=== PATIENT | male | born 1970 | race Caucasian/White ===

== ENCOUNTER 2022-10-20 06:37 | Emergency (ER) | payer OTHER, SELFPAY ==
--- NOTE | ~2022-10-20 | XR_ITS ---
EXAMINATION: XR chest 1V portable DATE: 10/20/2022 08:45 INDICATION: Hypertension. TECHNIQUE: A single frontal view of the chest was obtained. COMPARISON: None. FINDINGS: There is no pneumonia, pleural effusion, or pneumothorax. The heart size is normal. IMPRESSION: 1. No acute cardiopulmonary disease. Reviewed, dictated and finalized at location A. P[facility]TER
[2022-10-20 07:02] VITALS: BP 181/111; PULSE 98; RESP 16; TEMP 36.7; O2SAT 100
--- NOTE | 2022-10-20 08:18 | ECG_ITS ---
Measurements Intervals [place] Rate: 78 P: 13 AL: 172 QRS: -4 QRSD: 115 T: 62 QT: 374 QTc: 427 Interpretive Statements SINUS RHYTHM WITH SINUS ARRHYTHMIA INCOMPLETE RIGHT BUNDLE BRANCH BLOCK [90+ ms QRS DURATION, TERMINAL R IN V1/V2, 40+ ms S IN I/aVL/V4/V5/V6] NO PREVIOUS ECG AVAILABLE FOR COMPARISON Electronically Signed On 10-20-2022 14:55:13 [employer] ASSIST[employer] by Denia Velazquez M.D.
[2022-10-20 08:37] LABS: Basophils Absolute Auto 0.1 K/mm3 (0.0-0.1); Basophils Percent Auto 0.6 % (0.2-1.2); Eosinophils Absolute Auto 0.1 K/mm3 (0-0.3); Eosinophils Percent Auto 0.8 % (0-4.4); Hemoglobin 17.9 g/dL (14.0-18.0); Immature Granulocyte Absolute 0.11 K/mm3 (0.00-0.031); Immature Granulocyte Percent A 0.8 % (0-0.5); Lymphocytes Absolute Auto 1.47 K/mm3 (0.9-3.2); Lymphocytes Percent Auto 10.5 % (18.3-44.2); Mean Corpuscular HGB Conc 34.4 g/dl (32-36); Mean Corpuscular Hemoglobin 31.2 pg (26-34); Mean Corpuscular Volume 90.6 fl (80-100); Mean Platelet Volume 11.6 fl (7.4-10.4); Monocytes Absolute Auto 0.7 K/mm3 (0.1-0.6); Monocytes Percent Auto 5.2 % (2.6-8.5); Neutrophils Absolute Auto 11.5 K/mm3 (1.3-6.7); Neutrophils Percent Auto 82.1 % (45.5-73.1); Platelet Count Result 151 k/mm3 (150-375); Red Blood Count 5.74 M/mm3 (4.6-6.20); Red Cell Distribution Width 12.7 % (11.5-14.5)
[2022-10-20 08:39] LABS: Alanine Aminotransferase 32 U/L (6-50); Albumin Level 4.4 g/dL (3.5-5.1); Alkaline Phosphatase 99 U/L (38-126); Anion Gap 5 mmol/L (8-16); Aspartate Amino Transferase 29 U/L (17-59); Bilirubin,Total 0.6 mg/dL (0.2-1.3); Blood Urea Nitrogen 9 mg/dL (9-20); Calcium 8.5 mg/dL (8.4-10.2); Carbon Dioxide 31 mmol/L (22-30); Chloride 103 mmol/L (98-107); Estimated CRCL calculation 146 ml/min; Estimated Glomerular Filt Rate > 60; Glucose 112 mg/dL (65-110); Potassium 4.5 mmol/L (3.4-5.0); Sodium 139 mmol/L (137-145)
[2022-10-20 09:08] LABS: Appearance Urine Clear (Clear); Bilirubin Urine Negative (Negative); Blood Urine Negative (Negative); Color Urine Yellow (Yellow); Glucose Urine UA Negative (Negative); Ketones Urine Negative (Negative); Leukocyte Esterase Ur Negative LEU/UL (Negative); Nitrate Urine Negative (Negative); Protein Urine Negative (Negative); Specific Grav Ur <= 1.005 (1.001-1.035); Urobilinogen Urine 0.2 mg/dL (<2.0); pH Urine 6.5 (5.0-9.0)
[2022-10-20 09:10] LABS: RBC Urine 0-2 /hpf (0-2)
[2022-10-20 09:23] VITALS: BP 166/109; PULSE 81; RESP 15
[2022-10-20] MEDS: LOSARTAN POTASSIUM 50 MG TABLET PO (09:23)
[2022-10-20 09:25] LABS: Troponin I < 0.012 ng/mL (0.000-0.034)
--- NOTE | 2022-10-20 09:29 | ED.RECABL ---
HPI - Recheck/Abnormal Lab/Rx General Chief Complaint: Recheck/Abnormal Lab/Rx Stated Complaint: HTN Time Seen by Provider: 10/20/22 08:53 History of Present Illness HPI narrative: 52-year-old male with a history of high blood pressure here for evaluation of high blood pressure. Patient states that he took his BP last night on his roommate's cuff and it was noted to be 200 systolic. Patient states that he attributed that to alcohol use and decided to take it again this morning, was concerned that it was still in the 180s systolic. He does have a history of high blood pressure, his PCP recently increased his losartan to 75 from 50. patient states he still been taking the 50 because he did not want to run out of medicine. He denies any chest pain, shortness of breath, fevers or chills, nausea or vomiting. He is having some left fullness and sinus congestion but no dizziness, fevers. Related Data Allergies Allergy/AdvReac Type Severity Reaction Status Date / Time fenoprofen [From [place]] Allergy Hives Verified 10/20/22 09:22 Review of Systems Review of Systems: Gen.: Denies fevers or chills Eyes: Denies eye pain or visual change ENT: Denies congestion Respiratory: Denies shortness of breath or cough CV: Denies chest pain or palpitations GI: Denies abdominal pain nausea, emesis or diarrhea denies burning, urgency, frequency or hematuria Musculoskeletal: Denies back pain or muscle pain Neuro: Denies numbness, tingling, weakness or focal weakness Skin: Denies rash Except as documented, all other systems reviewed and negative Exam Narrative: APPEARANCE: Well appearing, no pain in distress, well-nourished. Head: Normocephalic and atraumatic. EYES: PERRLA/EOMI, conjunctivae clear NOSE: No nasal drainage EARS: Right TM has blue tympanic membrane, patient states he had it placed with the child. Left TM obscured by cerumen. External ear normal in appearance THROAT: Oropharynx is clear. Mucous membranes are moist. NECK: Supple. No adenopathy, no masses. RESPIRATORY: Airway patent, respirations nonlabored. Clear to auscultation bilaterally, no rales, rhonchi, wheezing. CARDIOVASCULAR: Regular rate and rhythm without murmurs, rubs, or gallops. ABDOMINAL: Normoactive bowel sounds. Soft, nontender, nondistended. No rebound tenderness or guarding. MUSCULOSKELETAL: Extremities are warm and well-perfused. Moves all extremities well. No edema. NEURO: Normal speech. No focal neurologic deficits. SKIN: Skin is warm and dry. No rashes. PSYCHIATRIC: Normal affect/mood.. Course Vital Signs Vital signs: Vital Signs Temperature 98.0 F 10/20/22 07:02 Pulse Rate 98 10/20/22 07:02 Respiratory Rate 16 10/20/22 07:02 Blood Pressure 181/111 H 10/20/22 07:02 Pulse Oximetry 100 10/20/22 07:02 Oxygen Delivery Room Air 10/20/22 07:02 Temperature 98.0 F 10/20/22 07:02 Pulse Rate 80 10/20/22 11:16 Respiratory Rate 13 10/20/22 11:16 Blood Pressure 170/88 H 10/20/22 11:16 Pulse Oximetry 96 10/20/22 11:16 Oxygen Delivery Room Air 10/20/22 07:02 MDM - Recheck/Abnormal Lab/Rx MDM Narrative Medical decision making narrative: 52-year-old male with a history of hypertension here for evaluation of hypertension noted on home cuff, not taking his full dose of losartan as directed. Initial BP is 181/111. Otherwise asymptomatic aside from left ear fullness. He has a cerumen impaction on the left side that was irrigated, TM is clear. Basic labs unremarkable, he does have a leukocytosis to 14, unclear etiology of this but not having any concerning infectious symptoms. EKG and troponin are nonischemic. Chest x-ray is clear. Urine is normal. Patient was given home dose of losartan with improvement of his BP. He will be discharged home to follow-up with his primary care doctor. Return precautions discussed and he voiced understanding. Lab Data 10/20/22 08:23 10/20/22 08:23 Labs: Lab Results
[2022-10-20 09:41] LABS: Add Urine Microscopic? NO
[2022-10-20 10:00] VITALS: BP 187/83; PULSE 80; RESP 12; O2SAT 97
[2022-10-20] MEDS: CARBAMIDE PEROXIDE 6.5% OT SOLN 15 ML BTL 5 DROP EACH EAR (10:16)
[2022-10-20 11:16] VITALS: BP 170/88; PULSE 80; RESP 13; O2SAT 96
== END 2022-10-20 11:26 | disposition home or self-care (01) ==
PROVIDERS: Emergency Medicine; Emergency Provider Physician Assistant
DX: I10 Essential (primary) hypertension (principal); H61.22 Impacted cerumen, left ear; I45.10 Unspecified right bundle-branch block
CPT/HCPCS: 36415; 69209; 71045; 80053; 81003; 84484; 85025; 93005; 99284; A9270

== ENCOUNTER 2024-04-01 14:18 | Outpatient (CLI) | payer OTHER, SELFPAY ==
--- NOTE | ~2024-04-01 | US_ITS ---
EXAMINATION: US scrotum doppler DATE: 04/01/2024 15:46 INDICATION: Disorder of male genitals. TECHNIQUE: Testicular sonogram utilizing grayscale and Doppler COMPARISON: None. FINDINGS: The right testis measures 10.0 x 4.5 x 6.1 cm. The left testis measures 3.9 x 2.7 x 3.1 cm. 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 There is heterogeneous echogenicity and increased vascu lar flow throughout the right testis with lobular internal architecture. Centimeters from the microli thiasis there is a normal grayscale appearance to the left testis. The right epididymis is normal wit h normal vascular flow. The left epididymis is normal with normal vascular flow. Small right hydrocel e. Mild right and varicocele. IMPRESSION: 1. Significantly enlarged and lobular right testis with diffuse heterogeneous echogenicity and incre ased vascular flow which is reportedly painless and concerning for malignancy either primary, metasta tic or lymphoma. Recommend urologic consultation. 2. Asymmetric right varicocele. Recommend further evaluation with CT of the abdomen and pelvis to ass ess for potential obstructing retroperitoneal lymphadenopathy. Reviewed, dictated and finalized at location A. IMPRESSION: 1. Significantly enlarged and lobular right testis with diffuse heterogeneous echogenicity and increased vascular flow which is reportedly painless and yancy rning for malignancy either primary, metastatic or lymphoma. Recommend urologic consultation. 2. Asymmetric right varicocele. Recommend further evaluation with CT of the abd omen and pelvis to assess for potential obstructing retroperitoneal lymphadenop athy.
== END 2024-04-01 14:19 | disposition home or self-care (01) ==
PROVIDERS: PCP Family Medicine; Visit Provider Family Medicine
DX: N50.89 Other specified disorders of the male genital organs (principal); I86.1 Scrotal varices; R01.1 Cardiac murmur, unspecified
CPT/HCPCS: 76870; 93976

== ENCOUNTER 2024-04-10 15:23 | Outpatient (CLI) | payer OTHER, SELFPAY ==
--- NOTE | ~2024-04-10 | CT_ITS ---
EXAMINATION: CT abdomen pelvis wo con DATE: 04/10/2024 15:46 INDICATION: Scrotal varices. TECHNIQUE: Computed tomography (CT) of the abdomen and pelvis was performed without intravenous contr ast. Automated exposure control and iterative reconstruction technique were employed. The dose-length product was 2188.30 mGy-cm. COMPARISON: Ultrasound testes 04/01/2024 FINDINGS: The visualized portions of the lung bases demonstrate minimal atelectasis. No pleural effus ion. The heart size is normal. No pericardial effusion. There is diffuse hepatic steatosis. The gallb ladder, pancreas, spleen, and left adrenal gland are normal. There is a 16 mm mass in right adrenal g land measuring low attenuation, consistent with an adenoma. There is a 2.8 cm cyst in right kidney. L eft kidney is normal. There is calcified atherosclerosis of the aorta and many of the other arteries. There is a right inguinal hernia containing fat. There are no dilated loops of bowel. The appendix i s normal. There are no pathologically enlarged lymph nodes. There is no free intraperitoneal fluid. R ight testis is enlarged. There are chronic bilateral L5 pars defects. There is 7 mm anterolisthesis o f L5 on S1. There is severe lower lumbar spondylosis. IMPRESSION: 1. Enlarged right testis, consistent with malignancy. No evidence of metastatic disease. 2. Right inguinal hernia containing fat. Reviewed, dictated and finalized at location A.
== END 2024-04-10 15:24 | disposition home or self-care (01) ==
LOC: ANHIMG 15:23
PROVIDERS: PCP Family Medicine; Visit Provider Family Medicine
DX: R93.49 Abnormal radiologic findings on diagnostic imaging of other urinary organs (principal); K44.9 Diaphragmatic hernia without obstruction or gangrene
CPT/HCPCS: 74176